=== PATIENT | male | born 1965 ===

== ENCOUNTER 2021-05-25 05:50 | Emergency (ER) | payer SELFPAY ==
[~2021-05-25] VITALS: Ht 188 cm; Wt 118.0 kg
[2021-05-25] MEDS ORDERED: ondansetron 4mg rapidly disintigrating tab PO ONE (05:55)
[2021-05-25 06:00] VITALS: BP 181/116
[2021-05-25] MEDS ORDERED: naloxone 2mg/2ml inj IV ONE (06:40)
[2021-05-25] MEDS ORDERED: normal saline 1000ML IV soln IVB ONE (06:40)
--- NOTE | 2021-05-25 07:07 | NUR ---
Pt asked to use urinal. Provided him with urinal and privacy. Pt stood with steady gait and used urinal. Then put his shoes on and ambulated out of dept with steay gait, refusing to answer further questions or stop to talk with us.
== END 2021-05-25 07:09 | disposition left against medical advice (07) ==
LOC: ER 05:50
DX: T40.411A Poisoning by fentanyl or fentanyl analogs, accidental (unintentional), initial encounter (principal); R41.82 Altered mental status, unspecified; Y92.89 Other specified places as the place of occurrence of the external cause
CPT/HCPCS: 82948; 99284; 99285